=== PATIENT | male | born 1965 | race Caucasian/White ===

== ENCOUNTER 2019-08-22 11:38 | Inpatient (IN) | payer BC, OTHER ==
[2019-08-22] MEDS ORDERED: Ondansetron INJ* 2 MG/ML VIAL IV ONE (11:59)
[2019-08-22] MEDS ORDERED: NS 0.9% 1000 ML** 1,000 ML IV ONE ×3 (11:59→14:10)
[2019-08-22] MEDS ORDERED: Dexamethasone IV* 4 MG/ML 1 ML (4 MG) IV SLOW PU ONE (12:11)
--- NOTE | 2019-08-22 12:13 | ED ---
GI/ HPI - HPI Summary HPI Summary: Patient is a 53 y/o M w/ Hx of panhypopituitarism who presents to [facility] with complaints of N/V and mid-upper abdominal pain that radiates into his back. Sx onset last night, 08/21/19, patient denies previous episodes of similar Sx. Pain is characterized as severe. Patient notes that his abdomen is diffusely distended and that he feels diaphoretic as well. He states that he cannot find a comfortable position to stay in. Diarrhea is denied. Patient is on Dexamethasone 4 mg PO, which he has not taken today. PSHx of superficial abdominal surgeries and tonsillectomy reported. FMHx of hypothyroidism, HTN, HLD reported. Home medications and allergies are reviewed. - History of Current Complaint Chief Complaint: EDAbdPain Time Seen by Provider: 08/22/19 11:59 Stated Complaint: FLANK PAIN, Hx Obtained From: Patient Onset/Duration: Started Hours Ago, Still Present Timing: Lasting Hours Current Severity: Severe Pain Intensity: 10 Location of Pain: Radiates to: - back, Other - mid upper abdomen Pain Radiates to: Back Associated Signs and Symptoms: Positive: Back Pain, Nausea, Vomiting, Diaphoresis, Abdominal Pain, Other: - abdominal distention. Negative: Diarrhea - Allergy/Home Medications Allergies/Adverse Reactions: Allergies Allergy/AdvReac Type Severity Reaction Status Date / Time Penicillins Allergy Rash Verified 08/22/19 11:53 Home Medications: Home Medications Cyanocobalamin TAB* [Vitamin B12 TAB*] 500 mcg PO DAILY 08/22/19 [History Confirmed 08/22/19] Dexamethasone [Decadron] 4 mg PO DAILY 08/22/19 [History Confirmed 08/22/19] Levothyroxine TAB* [Synthroid TAB*] 125 mcg PO DAILY 08/22/19 [History Confirmed 08/22/19] Testosterone 2 pump TOPICAL DAILY 08/22/19 [History Confirmed 08/22/19] Vitamin B Complex CAP* [B Complex CAP*] 1 cap PO DAILY 08/22/19 [History Confirmed 08/22/19] PMH/Surg Hx/FS Hx/Imm Hx Endocrine/Hematology History: Reports: Other Endocrine/Hematological Disorders - panhypopituitarism Sensory History: Denies: Hx Legally Blind, Hx Deafness Opthamlomology History: Denies: Hx Legally Blind EENT History: Denies: Hx Deafness - Surgical History Surgery Procedure, Year, and Place: superficial abdominal surgeries and tonsillectomy Infectious Disease History: No Infectious Disease History: Denies: Traveled Outside the [place] in Last 30 Days - Family History Known Family History: Positive: Hypertension, Other - hypothyroid, dyslipidemia - Social History Alcohol Use: Occasionally Substance Use Type: Reports: None Smoking Status (MU): Never Smoked Tobacco Review of Systems Positive: Skin Diaphoresis Positive: Abdominal Pain, Vomiting, Nausea, Other - positive - abdominal distention . Negative: Diarrhea All Other Systems Reviewed And Are Negative: Yes Physical Exam - Summary Physical Exam Summary: Constitutional: Ill-appearing, Well-developed, Well-nourished, Alert. (-) Distressed Skin: Warm, Dry HENT: Normocephalic; Atraumatic Eyes: Conjunctiva normal Neck: Musculoskeletal ROM normal neck. (-) JVD, (-) Stridor, (-) Nuchal rigidity Cardio: Tachycardia, Heart sounds normal; Intact distal pulses; Radial pulses are 2+ and symmetric. (-) Murmur Pulmonary/Chest wall: Effort normal. (-) Respiratory distress, (-) Wheezes, (-) Rales Abd: Soft, Diffuse Tender, Mild Distention, (-) Guarding, (-) Rebound Musculoskeletal: (-) Edema Lymph: (-) Cervical adenopathy Neuro: Alert, Oriented x3 Psych: Mood and affect Normal Triage Information Reviewed: Yes Vital Signs On Initial Exam: Initial Vitals Temp Pulse Resp BP Pulse Ox 97.6 F 111 16 127/97 99 08/22/19 11:52 08/22/19 11:52 08/22/19 11:52 08/22/19 11:52 08/22/19 11:52 Vital Signs Reviewed: Yes Procedures - Sedation Patient Received Moderate/Deep Sedation with Procedure: No Diagnostics - Vital Signs Vital Signs Temp Pulse Resp BP Pulse Ox 08/22/19 11:52 97.6 F 111 16 127/97 99 - Laboratory Result Diagrams: 08/22/19 12:26 08/22/19 12:26 Lab Statement: Any lab studies that have been ordered have been reviewed, and results considered in the medical decision making process. - CT ct abd/pel CT Interpretation Completed By: Radiologist Summary of CT Findings: IMPRESSION: #. Acute pancreatitis with small volume of anterior pararenal space peripancreatic. nonloculated fluid and small volume of ascites. #. No CT abnormality of the gallbladder or visualized biliary dilatation. Consider RIGHT. upper quadrant ultrasound to further assess the gallbladder and common bile duct for. potential CT occult cholelithiasis and choledocholithiasis. #. Nonspecific hepatomegaly and hepatosteatosis which may be a risk factor for acute. pancreatitis. Correlate for etiology hepatosteatosis. #. Results discussed with Dr. Peterson 08/22/2019 2:05 PM EDT. THIS REPORT WAS REVIEWED BY ED PHYSICIAN. - Ultrasound gallbladder us Ultrasound Interpretation Completed By: Radiologist Summary of Ultrasound Findings: REPORT AND IMPRESSION: #. The visualized liver is echogenic consistent with hepatosteatosis. #. Normally distended gallbladder without wall thickening or cholelithiasis. Negative for. pericholecystic fluid. #. Short segment of the common bile duct visualized measuring up to 0.37 diameter within. normal limits. Hepatosteatosis limits acoustic window. No conspicuous stones within the. visualized common bile duct. #. The pancreas could not be visualized due to overlying bowel gas. This report was reviewed by ED physician. Re-Evaluation - Re-Evaluation First Eval Re-Evaluation Time: 13:29 Change: Unchanged Comment: 1329 Patient continues to be in pain, additional medications ordered. Second Eval Re-Evaluation Time: 13:57 Comment: Lipase level noted. Discussed workup with patient. GIGU Course/Dx - Course Course Of Treatment: 53 y/o male p/w n/v and diffuse abdominal pain. - ill appearing, tachycardic, dry MM, given 2 L IVF, zofran, morphine and 4 mg decadron IV for stress dose steroids. - labs w leukocytosis to 17, Hb 19 suspect hemoconcentration. Elevated AST/ALT. lipase 4500. - CT shows pancreatitis, no stones. US w/o stones. GI recommends ERCP. Given 3L IVF. Pain control w dilaudid. Patient in agreement w admission - Diagnoses Provider Diagnoses: Acute pancreatitis, Dehydration - Physician Notifications Discussed Care Of Patient With: Fransisco Guerrero Time Discussed With Above Provider: 14:11 Instructed by Provider To: Other - 1411 Dr. Guerrero in ED, will consult as needed, recommends gallbladder US, fluids, NPO, admission to hospitalist, GI consult. 1413 - Patient's case discussed with Dr. Clement, GI, recommends US , if negative, MRCP. She also recommends admission to hospitalist. 1417 - Patient's case was discussed with Dr. Bledsoe, Dr. Bledsoe accepts for admission. Discharge ED - Sign-Out/Discharge Documenting (check all that apply): Patient Departure - admit - Discharge Plan Condition: Stable Disposition: ADMITTED TO [facility] Referrals: No Primary Care Phys,NOPCP [Primary Care Provider] - - Billing Disposition and Condition Condition: STABLE Disposition: Admitted to [facility] - Attestation Statements Document Initiated by Meenu: Yes Documenting Scribe: PRITESH MARTÍNEZ Provider For Whom Meenu is Documenting (Include Credential): SEGRE PETERSON MD Scribe Attestation: PRITESH James, scribed for SERGE PETERSON MD on 08/22/19 at 1501. Scribe Documentation Reviewed: Yes Provider Attestation: The documentation as recorded by the PRITESH ku accurately reflects the service I personally performed and the decisions made by me, SERGE PETERSON MD Status of Scribe Document: Viewed
[2019-08-22 12:41] LABS: ABS Basophils 0.1 10^3/ul (0-0.2); ABS Lymphocytes 1.8 10^3/ul (1.0-4.8); ABS Monocytes 1.2 10^3/ul (0-0.8); ABS Neutrophils 14.7 10^3/ul (1.5-7.7); ABS Nucleated RBC 0.1 10^3/ul; Eosinophil % 0.2 %; Hematocrit 54 % (42-52); Mean Corpuscular HGB Conc 35 g/dL (31-36); Mean Corpuscular Hemoglobin 33 pg (27-31); Mean Corpuscular Volume 94 fL (80-94); Mean Platelet Volume 7.5 fL (7.4-10.4); Nucleated Red Blood Cells % 0.3; Platelet Count 191 10^3/uL (150-450); Red Blood Count 5.74 10^6 /uL (4.18-5.48); Red Cell Distribution Width 14 % (10-15); White Blood Count 17.8 10^3/uL (3.5-10.8)
[2019-08-22 12:59] LABS: Albumin 4.7 g/dL (3.2-5.2); Albumin/Globulin Ratio 1.4 (1-3); BUN/Creatinine Ratio 10.7 (8-20); Calcium 10.5 mg/dL (8.6-10.3); EGFR African American 55.6 (>60); EGFR Non-African American 45.9 (>60); Globulin 3.3 g/dL (2-4); Total Bilirubin 1.2 mg/dL (0.2-1.0)
[2019-08-22] MEDS ORDERED: Morphine 4 MG/ML VIAL (1 ml) 4 MG/ML VIAL IV ONE (13:04)
[2019-08-22] MEDS ORDERED: Morphine 10 MG/ML VIAL (1 ml) ONE (13:07)
[2019-08-22] MEDS ORDERED: Morphine 10 MG/ML VIAL (1 ml) IV ONE (13:09)
[2019-08-22] MEDS ORDERED: HYDROmorphone INJ* 0.5 MG/0.5 ML SYRINGE IV ONE ×2 (13:29→14:27)
[2019-08-22] MEDS ORDERED: Iodixanol* (CONTRAST) 320 MG/ML 100 ML SDV IV ONE (13:32)
[2019-08-22] MEDS ORDERED: NS 0.9% 1000 ML** 1,000 ML IV SCH (14:30)
[2019-08-22] MEDS ORDERED: HYDROmorphone INJ1* 1 MG/ML SYRINGE IV PRN (14:52)
[2019-08-22] MEDS: NS 0.9% 1000 ML** 1,000 ML IV SCH ×2 (15:26→22:46)
--- NOTE | 2019-08-22 15:31 | CONS ---
CC: Primary Care Doctor; [facility]; Endocrinology at [facility]; Dr. Chandu Jernigan SURGICAL CONSULTATION REPORT: DATE OF CONSULT: 08/22/19 LOCATION: The patient was seen in the emergency room. HISTORY OF PRESENT ILLNESS: I was contacted by Dr. Baez's partner Dr. 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 The patient describes onset of symptoms yesterday mostly in the anterior abdominal area, it was accom panied with severe nausea and vomiting and retching, nonbilious, nonbloody. The patient had temperat ure of 100, some chills, and pain continued through the night, radiating to the back by morning. It was accompanied with anorexia. Workup in the emergency room has included labs and a CT scan, which is consistent with pancreatitis w ith elevated lipase of 4500, small volume ascites, and fluid around the pancreas. The patient denies any previous similar symptoms. He is passing flatus. Denies any dysuria. Pain is alleviated with narcotics. It is somewhat relieved with rest; however, the patient states it is difficult to get com fortable. He describes being bloated earlier today and has shown some resolution of this. Again, he is passing flatus. He states his last bowel movement was within normal limits. PAST MEDICAL HISTORY: Pituitary lesion, status post excision. This did require some abdominal fasci al transplant and the patient does have a small infraumbilical incision that he identifies to me. Hy pertension. PAST SURGICAL HISTORY: As described. No other abdominal surgeries. FAMILY HISTORY: Gallbladder disease in the family where his mother had her removed at an older age. SOCIAL HISTORY: He lives with his partner who is the decision maker. Nonsmoker. He drinks about 2 g lasses of wine a day. 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 ALLERGIES: Reviewed, consists of PENICILLIN. REVIEW OF SYSTEMS: Fever as described. Chills as described. No shortness of breath. No chest pain . No cardiac history, although he has had an echocardiogram in the past when he was diagnosed with h ypertension and hypertensive crisis. This was likely secondary to pituitary adenoma. Echocardiogram is normal according to the patient. Abdominal pain as described. Dark colored urine. No pain on u rination. No bleeding or clotting disorders. History of elevated triglycerides according to the pat ient. He had recently had a draw at a doctor at an outside institution. These numbers are available to me today, show a cholesterol of 236 which now on review listed in our lab as normal. Triglycerid e of 461, which is deemed as high with reference range 200 to 499, close to very high, this was on . PHYSICAL EXAM: The patient is afebrile 97.6. He came in with a heart rate of 111, it was about 100 when I had gone to visit him. Blood pressure 136/87, respirations 20. He is on room air and satting in the high 90s. He is alert and oriented x3. He is in mild distr ess. Head, ears, eyes, and throat: Normocephalic, atraumatic. Sclerae are anicteric. Mucous membra lorena are dry with crusted lips. The patient is able to sit up with some difficulty. Mild CVA tendern ess on the left. No lesions otherwise on the back. Abdomen is soft, mildly distended, tender in the epigastrium with tympany on the right upper quadrant, but negative Maciel sign. Tender at the left s alex but only minimal discomfort in the lower quadrants without peritoneal signs. Well-healed surgica l incision without evidence of hernia. No groin hernias. Rectal exam not performed. Extremities wi th no pitting edema or skin changes. DIAGNOSTIC STUDIES/LAB DATA: Labs reviewed show white count of 17.8, H and H 19/54. Labs from 2 mon ths ago show H and H of 15/44. Chemistry panel reviewed shows elevated creatinine of 1.59, again he was 0.89 just recently. Elevated transaminases with a bilirubin of 1.2 and a calcium of 10.5, refere nce range is 8.6 to 10.3. Lipase of 4500. CT scan images reviewed consistent with acute pancreatitis with no evidence of necrosis, no abscess f ormation. IMPRESSION AND PLAN: Acute pancreatitis, unclear etiology. Differential diagnosis includes gallston e pancreatitis and I recommend ultrasound of the gallbladder. Alcohol is included in the etiology as well as triglyceridemia. The patient should be admitted, IV fluids, n.p.o. status, possible Roger ca theter placement for strict I's and O's and repeat labs in the morning paying attention to his calciu m level. The patient may warrant additional CAT scans to follow the course of this significant diseas e right now along with lipase draws, liberal hydration parenteral at this time is recommended. I do not recommend at this point antibiotics, I will leave this to the discretion of the hospitalist kenna doherty. We will follow closely. If the patient should have gallstones noted on ultrasound, then he shoul d undergo gallbladder removal possibly during this admission. We will discuss that going forward whe n more workup is done. I have discussed this with the ER service who will reach out to the [facility] and we will follow along with Dr. Baez. Again, strict n.p.o. is highly recommended for the sever ity of the patient's presentation. [id number]/[facility] #: [id number]
--- NOTE | 2019-08-22 15:39 | HP ---
HISTORY AND PHYSICAL: ADDENDUM: ASSESSMENT AND PLAN: Acute kidney injury, likely prerenal in the setting of acute inflammation and inability to tolerate p.o. Again, he needed some more aggressive IV fluid resuscitation and we will recheck his renal function tomorrow. [id number]/[facility] #: [id number] MTDD
--- NOTE | 2019-08-22 16:05 | HP ---
HISTORY AND PHYSICAL: DATE OF ADMISSION: 08/22/19 TIME OF ADMISSION: 3 p.m. CHIEF COMPLAINT: Abdominal pain. HISTORY OF PRESENT ILLNESS: This is a 53-year-old man with a history of panhypopituitarism, who presents to the emergency department with abdominal pain that started this morning. His symptoms initially started yesterday with some nausea, then later into the afternoon and evening he began vomiting, which he described as constant and he developed chills. He took his temperature and had a temperature of 100 degrees. Then, this morning, he developed epigastric abdominal pain that radiated to his back and his abdomen felt bloated and swollen. He could not get comfortable and even laid on the floor trying to reposition himself. He had no diarrhea, no fevers, and eventually this morning the pain got more severe and that is what prompted him to come to the emergency department. In the emergency department, he was found to have pancreatitis. He has never had pancreatitis before. He has never had gallbladder disease. He has no new recent medications, and he drinks 2 glasses of wine per night and has not been having any extra as of late. PAST MEDICAL HISTORY: 1. Hypertension. He is not currently taking any medications as it has been well controlled. 2. 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 3. Hyperlipidemia, which is diet controlled. PAST SURGICAL HISTORY: Tonsillectomy, wisdom teeth removal, and pituitary macroadenoma resection. HOME MEDICATIONS: 1. Vitamin B12 500 mcg daily. 2. Testosterone 20.25/1.25 two pumps topically daily. 3. Vitamin B complex 1 cap daily. 4. Synthroid 125 mcg daily. FAMILY HISTORY: Mom had gallstones. REVIEW OF SYSTEMS: As per the HPI. The remainder is negative. PHYSICAL EXAMINATION GENERAL: Alert, uncomfortable appearing man, in no distress. He changes position frequently. VITAL SIGNS: Temperature 97.6, heart rate 100, respiratory rate 20, pulse ox 93 % on room air, blood pressure 182/111. HEENT: Pupils equal, round, reactive to light. Oral mucosa is profoundly dry. NECK: No JVP or adenopathy. LUNGS: Clear bilaterally. CHEST: He is tachycardic with no murmurs. ABDOMEN: Tense and tender to light palpation in the right upper quadrant, mid epigastrium, and left upper quadrant without guarding. His liver is not palpable. I am unable to do a Maciel sign due to pain. No CVA tenderness. EXTREMITIES: No edema, rashes, or ulcers. Distal pulses are 2+ bilaterally. DIAGNOSTIC STUDIES/LAB DATA: White blood cells 17.8, hemoglobin 19.0, platelets 191. Sodium 139, potassium 4.0, chloride 98, bicarb 22, BUN 17, creatinine 1.59, glucose 98. AST 68, ALT 81. Lipase 4522. Abdomen and pelvis CT: Acute pancreatitis with small volume of anterior pararenal space, peripancreatic non-loculated fluid, and small volume of ascites. No CT abnormality of the gallbladder or visualized biliary dilatation. Consider right upper quadrant ultrasound to further assess the gallbladder and common bile duct for potential CT occult choledocholithiasis, cholelithiasis, and nonspecific hepatomegaly and hepatosteatosis which may be a risk factor for acute pancreatitis. Gallbladder ultrasound: The visualized liver is echogenic consistent with hepatosteatosis, normally distended gallbladder without wall thickening or cholelithiasis, negative for pericholecystic fluid, short segment of the common bile duct visualized measuring up to 0.37 in diameter within normal limits, hepatosteatosis limits acoustic window. No conspicuous stones within the visualized common bile duct. The pancreas could not be visualized due to overlying bowel gas. ASSESSMENT AND PLAN: This is a 53-year-old man with a history of hypertension, hyperlipidemia, and panhypopituitarism, who presents to the emergency department with several hours of abdominal pain and is found to have acute pancreatitis. 1. Acute pancreatitis. The etiology is unclear at this time. No stone has been visualized on either CT or ultrasound. This was discussed with Gastroenterology who recommended an MRCP. I have updated Horacio on this plan and he is in agreement. He is not on any medications known to be associated with pancreatitis. He does not have an autoimmune history, and I will check a lipid panel to rule out hypertriglyceridemia. I will manage his pain with Dilaudid, which was helpful in the emergency department. He needs more IV fluid resuscitation, and I will keep him n.p.o. as per his desire as even sips have caused him worsening pain. His diet can be advanced based on his comfort level. If his MRCP is positive, Dr. Mills is available tomorrow for an ERCP. 2. Hypopituitarism. He tells me that when he is ill he takes Decadron 4 mg daily. We will start this today. 3. Hypertension. He reports that this has been controlled off medications as an outpatient. I suspect his current hypertension is related to pain and we will attempt to treat it with improved pain control. 4. DVT prophylaxis: Lovenox subcutaneous. ADDENDUM TO HISTORY AND PHYSICAL: SOCIAL HISTORY: He is a nonsmoker. He drinks 2 glasses of wine per night. 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 ASSESSMENT AND PLAN: Acute kidney injury, likely prerenal in the setting of acute inflammation and inability to tolerate p.o. Again, he needed some more aggressive IV fluid resuscitation and we will recheck his renal function tomorrow. [id number]/[facility] #: [id number]/[facility] #: [id number]/[facility] #: [id number] SAHLEIGH
[2019-08-22] MEDS ORDERED: Ondansetron INJ* 2 MG/ML VIAL IV PRN (16:40)
[2019-08-22] MEDS: Dexamethasone TAB* 4 MG PO SCH (17:05)
--- NOTE | 2019-08-22 17:29 | PN ---
Hospitalist Progress Note Date of Service: 08/22/19 Trigs [id number]. I discussed with Dr. Irizarry; unlikely to cause pancreatitis at this level. Trend daily.
--- NOTE | 2019-08-22 18:13 | HP ---
ADDENDUM: HISTORY AND PHYSICAL: SOCIAL HISTORY: He is a nonsmoker. He drinks 2 glasses of wine per night. 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 [id number]/[facility] #: [id number] ASHLEIGH
[2019-08-22] MEDS: HYDROmorphone INJ1* 1 MG/ML SYRINGE IV PRN ×2 (19:58→22:41)
[2019-08-23] MEDS: HYDROmorphone INJ1* 1 MG/ML SYRINGE IV PRN ×7 (01:57→21:00)
[2019-08-23] MEDS ORDERED: Metoprolol Tartrate IV* 1 MG/ML 5 ML VIAL IV PRN (02:53)
[2019-08-23 04:32] LABS: ABS Lymphocytes 0.6 10^3/ul (1.0-4.8); ABS Monocytes 0.7 10^3/ul (0-0.8); ABS Neutrophils 11.9 10^3/ul (1.5-7.7); Eosinophil % 0.3 %; Hematocrit 54 % (42-52); Lymphocyte % 4.8 %; Mean Corpuscular HGB Conc 34 g/dL (31-36); Mean Corpuscular Hemoglobin 33 pg (27-31); Mean Corpuscular Volume 97 fL (80-94); Mean Platelet Volume 7.8 fL (7.4-10.4); Nucleated Red Blood Cells % 0.2; Platelet Count 129 10^3/uL (150-450); Red Blood Count 5.54 10^6 /uL (4.18-5.48); Red Cell Distribution Width 14 % (10-15); White Blood Count 13.3 10^3/uL (3.5-10.8)
[2019-08-23 05:12] LABS: ALT 56 U/L (7-52); Albumin 3.8 g/dL (3.2-5.2); Albumin/Globulin Ratio 1.7 (1-3); Alkaline Phosphatase 64 U/L (34-104); BUN/Creatinine Ratio 15.9 (8-20); Blood Urea Nitrogen 21 mg/dL (6-24); CO2 Carbon Dioxide 18 mmol/L (22-32); Calcium 7.3 mg/dL (8.6-10.3); Chloride 110 mmol/L (101-111); Cholesterol 250 mg/dL; EGFR African American 68.9 (>60); Globulin 2.3 g/dL (2-4); Glucose 132 mg/dL (70-100); LDL Cholesterol 146 mg/dL; Sodium 137 mmol/L (135-145); Total Protein 6.1 g/dL (6.4-8.9); Triglycerides 367 mg/dL
[2019-08-23 05:44] LABS: Anion Gap 9 mmol/L (2-11)
[2019-08-23] MEDS: Levothyroxine TAB* 125 MCG TAB PO SCH (05:52)
[2019-08-23] MEDS: NS 0.9% 1000 ML** 1,000 ML IV SCH ×4 (05:53→19:45)
[2019-08-23] MEDS: Enoxaparin(*) 40 MG/0.4 ML SYR SUBCUT SCH (08:45)
[2019-08-23] MEDS: Dexamethasone TAB* 4 MG PO SCH ×3 (08:47→09:57)
[2019-08-23 09:50] LABS: Potassium Redraw 6.1 mmol/L (3.5-5.0)
[2019-08-23 10:06] LABS: Magnesium 1.7 mg/dL (1.9-2.7)
[2019-08-23 10:28] LABS: BUN/Creatinine Ratio 17.2 (8-20); Calcium 7.3 mg/dL (8.6-10.3); EGFR Non-African American 48.8 (>60)
[2019-08-23 10:30] LABS: Potassium 6.1 mmol/L (3.5-5.0)
--- NOTE | 2019-08-23 11:05 | PN ---
Subjective Date of Service: 08/23/19 Interval History: Pt feels his abd pain is "a little better", but still severe enough to require IV pain med does Q3H, denies vomiting. Had a small BM last night Objective Active Medications: Dexamethasone (Decadron Tab*) 4 mg PO DAILY [facility] Last Admin: 08/23/19 09:57 Dose: Not Given Enoxaparin Sodium (Lovenox(*)) 40 mg SUBCUT Q24H [facility] Last Admin: 08/23/19 08:45 Dose: 40 mg Hydromorphone HCl (Dilaudid Inj1s*) 1.5 mg IV Q3H PRN PRN Reason: PAIN - SEVERE Last Admin: 08/23/19 08:42 Dose: 1.5 mg Sodium Chloride (Ns 0.9% 1000 Ml) 1,000 mls @ 150 mls/hr IV PER RATE [facility] Last Admin: 08/23/19 05:53 Dose: 150 mls/hr Levothyroxine Sodium (Synthroid Tab*) 125 mcg PO DAILY@0600 [facility] Last Admin: 08/23/19 05:52 Dose: 125 mcg Metoprolol Tartrate (Lopressor Iv*) 5 mg IV Q6H PRN PRN Reason: HR>120 Last Admin: 08/23/19 03:06 Dose: 5 mg Ondansetron HCl (Zofran Inj*) 4 mg IV Q4H PRN PRN Reason: NAUSEA Last Admin: 08/22/19 16:51 Dose: 4 mg Pantoprazole Sodium (Protonix Iv*) 40 mg IV DAILY [facility] Vital Signs - 8 hr 08/23/19 08/23/19 08/23/19 03:20 05:43 07:15 Temperature 97.6 F Pulse Rate 117 Respiratory 16 16 16 Rate Blood Pressure 119/79 (mmHg) O2 Sat by Pulse 92 Oximetry 08/23/19 08/23/19 08/23/19 08:00 08:42 09:57 Temperature Pulse Rate Respiratory 18 16 20 Rate Blood Pressure (mmHg) O2 Sat by Pulse Oximetry Oxygen Devices in Use Now: None Appearance: 53 yo M in nAD, aAOx3 Eyes: No Scleral Icterus, PERRLA Ears/Nose/Mouth/Throat: NL Teeth, Lips, Gums, Mucous Membranes Moist Neck: NL Appearance and Movements; NL JVP, Trachea Midline Respiratory: Symmetrical Chest Expansion and Respiratory Effort, Clear to Auscultation Cardiovascular: NL Sounds; No Murmurs; No JVD, RRR Abdominal: - - distended, tympanic to percusion, diffuse guarding noted, diffusely tender Lymphatic: No Cervical Adenopathy Extremities: No Edema Skin: No Rash or Ulcers Neurological: Alert and Oriented x 3, NL Muscle Strength and Tone Result Diagrams: 08/23/19 04:15 08/23/19 09:15 Assess/Plan/Problems-Billing Assessment: 53 yo M with h/o hypopituitarism s/p pituitary adenoma excision with N/V abd pain and acute pancreatitis - Patient Problems (1) Acute pancreatitis Comment: Still in significant abd pain and abd guarding, although pt feels a little better. will cont OK for sips of water start PPI IV for GI prohylaxis CT abd and MRCP shows edema of duodenum , normal gallbladder , decreased diameter of pancreatic duct proximally and acute pancreatitis cont IVF, dilaudid for pain control-singinficant need, but pain management adequate for pt for now GI and surgery consulted (2) Hyperkalemia Comment: likely due to hemolyzed specimen, will repeat (3) Tachycardia Comment: EKG shows sinus tachy-likely due to ongoing illness (4) Hypopituitarism Comment: cont stress dose steroids, levothyroxine (5) Acute renal failure Comment: due to pancreatitis, cont IVf (6) DVT prophylaxis Comment: lovenox Status and Disposition: inpatient
[2019-08-23] MEDS ORDERED: Magnesium Sulfate 2 GM IV* 2 GM/50 ML BAG IVPB ONE (11:09)
[2019-08-23] MEDS: Pantoprazole IV* 40 MG IV SCH (11:32)
--- NOTE | 2019-08-23 12:25 | PN ---
Progress Note - Progress Note Date of Service: 08/23/19 Note: Surgery Progress Note S: Patient still complains of significant abdominal pain though slightly better. He is able to ambulate to the bathroom slowly. No emesis. His I&Os have not been recorded. O: Vital Signs - 24 hr 08/22/19 08/22/19 08/22/19 13:09 13:19 13:34 Temperature Pulse Rate 82 Respiratory 20 20 Rate Blood Pressure 136/87 (mmHg) O2 Sat by Pulse 95 Oximetry 08/22/19 08/22/19 08/22/19 14:00 14:19 14:23 Temperature Pulse Rate 101 102 Respiratory Rate Blood Pressure 184/122 180/110 (mmHg) O2 Sat by Pulse 92 92 Oximetry 08/22/19 08/22/19 08/22/19 14:49 15:00 15:02 Temperature Pulse Rate 100 101 Respiratory 20 Rate Blood Pressure 182/111 (mmHg) O2 Sat by Pulse 93 95 Oximetry 08/22/19 08/22/19 08/22/19 15:19 16:20 16:21 Temperature 97.6 F Pulse Rate 102 101 Respiratory 20 20 Rate Blood Pressure 179/126 182/111 (mmHg) O2 Sat by Pulse 91 95 Oximetry 08/22/19 08/22/19 08/22/19 16:35 16:51 18:07 Temperature 97.5 F Pulse Rate 105 Respiratory 20 20 18 Rate Blood Pressure 179/119 (mmHg) O2 Sat by Pulse 96 Oximetry 08/22/19 08/22/19 08/22/19 19:30 19:50 19:58 Temperature 97.3 F Pulse Rate 124 Respiratory 18 18 20 Rate Blood Pressure 180/98 (mmHg) O2 Sat by Pulse 96 Oximetry 08/22/19 08/22/19 08/22/19 20:38 20:54 22:41 Temperature Pulse Rate 106 Respiratory 18 18 Rate Blood Pressure 128/72 (mmHg) O2 Sat by Pulse Oximetry 08/22/19 08/22/19 08/23/19 23:31 23:49 00:30 Temperature 98.3 F Pulse Rate 126 126 Respiratory 16 18 Rate Blood Pressure 153/112 162/106 (mmHg) O2 Sat by Pulse 94 Oximetry 08/23/19 08/23/19 08/23/19 01:57 02:55 03:20 Temperature 98.1 F Pulse Rate 128 Respiratory 20 16 16 Rate Blood Pressure 125/84 (mmHg) O2 Sat by Pulse 91 Oximetry 08/23/19 08/23/19 08/23/19 05:43 07:15 08:00 Temperature 97.6 F Pulse Rate 117 Respiratory 16 16 18 Rate Blood Pressure 119/79 (mmHg) O2 Sat by Pulse 92 Oximetry 08/23/19 08/23/19 08/23/19 08:42 09:57 11:36 Temperature Pulse Rate Respiratory 16 20 18 Rate Blood Pressure (mmHg) O2 Sat by Pulse Oximetry Laboratory Results - last 24 hr 08/22/19 08/22/19 08/23/19 12:26 12:26 04:15 WBC 17.8 H 13.3 H RBC 5.74 H 5.54 H Hgb 19.0 H 18.0 Hct 54 H 54 H MCV 94 97 H MCH 33 H 33 H MCHC 35 34 RDW 14 14 Plt Count 191 129 L MPV 7.5 7.8 Neut % (Auto) 82.7 89.4 Lymph % (Auto) 10.0 4.8 [place] % (Auto) 6.5 5.3 Eos % (Auto) 0.2 0.3 Baso % (Auto) 0.6 0.2 Absolute Neuts (auto) 14.7 H 11.9 H Absolute Lymphs (auto) 1.8 0.6 L Absolute Monos (auto) 1.2 H 0.7 Absolute Eos (auto) 0.0 0.0 Absolute Basos (auto) 0.1 0.0 Absolute Nucleated RBC 0.1 0.0 Nucleated RBC % 0.3 0.2 Sodium 139 Potassium 4.0 Chloride 98 L Carbon Dioxide 22 Anion Gap 19 H BUN 17 Creatinine 1.59 H Est GFR ( Amer) 55.6 Est GFR (Non-Af Amer) 45.9 BUN/Creatinine Ratio 10.7 Glucose 98 Calcium 10.5 H Magnesium Total Bilirubin 1.20 H AST 68 H ALT 81 H Alkaline Phosphatase 102 Total Protein 8.0 Albumin 4.7 Globulin 3.3 Albumin/Globulin Ratio 1.4 Triglycerides 665 Cholesterol LDL Cholesterol HDL Cholesterol Lipase 4522 H 08/23/19 08/23/19 08/23/19 04:15 09:15 09:15 WBC RBC Hgb Hct MCV MCH MCHC RDW Plt Count MPV Neut % (Auto) Lymph % (Auto) [place] % (Auto) Eos % (Auto) Baso % (Auto) Absolute Neuts (auto) Absolute Lymphs (auto) Absolute Monos (auto) Absolute Eos (auto) Absolute Basos (auto) Absolute Nucleated RBC Nucleated RBC % Sodium 137 135 Potassium TNP 6.1 H* 6.1 H* D Chloride 110 107 Carbon Dioxide 18 L 18 L Anion Gap 9 10 BUN 21 26 H Creatinine 1.32 H 1.51 H Est GFR ( Amer) 68.9 59.0 Est GFR (Non-Af Amer) 57.0 48.8 BUN/Creatinine Ratio 15.9 17.2 Glucose 132 H 147 H Calcium 7.3 L 7.3 L Magnesium Cancelled 1.7 L Total Bilirubin 1.20 H AST TNP 90 H ALT 56 H Alkaline Phosphatase 64 Total Protein 6.1 L Albumin 3.8 Globulin 2.3 Albumin/Globulin Ratio 1.7 Triglycerides 367 Cholesterol 250 LDL Cholesterol 146 HDL Cholesterol 31.0 Lipase 2060 H Intake & Output 08/22/19 08/23/19 08/23/19 22:59 06:59 14:59 Intake Total 2949 1001 Output Total 0 Balance 2949 1001 Weight 196 lb 8 oz Intake: IV Fluids 2949 1001 NS (0.9%) 949 1001 Oral 0 0 Output: Urine 0 Physical exam: Abdomen- distended, tender diffusely, somewhat tense A/P: 53 M with severe acute pancreatitis. - I reviewed all of patient's imaging and discussed it with him. He does not appear to have any evidence of gallstones, cholecystitis or biliary dilitation that would suggest that the source of the pancreatitis is from gallstones. He has infiltration of his mesentery and retroperitoneum with fluid and peripancreatic inflammation/fluid. - His overall clinical condition appears to be slightly improved today. He is still tachycardic, but his calcium and Cr have improved and his WBC and lipase levels are downtrending. His I&Os have not been recorded and I spoke with his nurse regarding the importance of strict documentation in order to guide his fluid resuscitation, given the severity of his pancreatitis. - Will increase IVF to 200cc/hr, per patient his UOP has been marginal and darkish today. - Continue NPO I discussed care with Dr. Latham and debra's nurse
--- NOTE | 2019-08-23 14:40 | CONS ---
CONSULTATION REPORT: DATE OF CONSULT: 08/23/19 INDICATION: Pancreatitis. 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 He states that he had developed abdominal pain that was mild in nature that progressively got worse over many hours. It became so severe that he really could not find any comfortable position, also developed some bloating and distention. Eventually when the pain started radiating through to his back, he presented to the emergency room where labs and CT indicated pancreatitis. He was admitted to the hospital, was seen by the surgical services, has been n.p.o. receiving IV fluids and pain control. Currently, he states that he is feeling better at this point. He has not anywhere near being normal but definitely he states better today than yesterday and better than the day before. As far as his pancreatitis goes, he has never been diagnosed with pancreatitis in the past. There is no family history of pancreatitis. He does drink 2 glasses of wine every night. This has not increased at all recently. Denies any history of gallstones. Denies any new medications. He will take prednisone occasionally, stress dose prednisone, due to his panhypopituitarism; however he has not taken any in approximately 4 months. He rarely takes NSAIDs, but he did take some after the pain began. He denies any other new medications. Again, no family history of pancreatitis. Denies any injury or trauma. No scorpion bites. He does have a history of hypertriglyceridemia. He had it checked a few months ago , it was 614. He did have a temperature of 100.0, but not above. No other infectious symptoms. PAST MEDICAL HISTORY: Significant for panhypopituitarism, hypertriglyceridemia , untreated hypertension. PAST SURGICAL HISTORY: Included tonsillectomy, dental surgery, and a pituitary macroadenoma resection. MEDICATIONS AT HOME: Include: 1. Synthroid. 2. Testosterone. 3. Vitamin B12 and B complex. FAMILY HISTORY: Gallstones. Social: 2 glasses of wine per night, no tobacco, no IV drugs REVIEW OF SYSTEMS: Twelve systems were reviewed, other than that mentioned in the HPI were unremarkable. PHYSICAL EXAM: Temperature is 97.3, blood pressure is 121/84, pulse is 123, respiratory rate of 16, O2 sat is 91% on room air. General: Well-appearing male, in no apparent distress. Alert, oriented, pleasant, fluent. HEENT: Mucous membranes are moist without lesions, ulcers, or exudate. Sclerae anicteric. Conjunctivae are not pale. Heart: Regular rate and rhythm, tachycardic. No murmur. Lungs: Clear to auscultation bilaterally. No wheezes , rales, or rhonchi. Abdomen is softly distended. Obese. Positive bowel sounds. Diffusely tender. No rebound. No guarding. No masses are felt. Good bowel sounds, however. Skin is warm and dry. Psych: normal affect, good mood, LABORATORY DATA: Of note, white count is 13.3, hemoglobin is 18, platelet count of 129. BUN is 26, creatinine is 1.51. Glucose is 147. Calcium is down to 7.3, was at 10.5. Bilirubin is 1.2. AST went from 68 to 90. ALT went from 81 to 56. Triglycerides went from 665 down to 367. Lipase went from 4522 to 2060. He also has an MRCP which does not reveal any cholelithiasis, no anatomic changes. A CT abdomen and pelvis shows acute pancreatitis and hepatic steatosis. 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 At this point, leading etiology would be idiopathic; however, also could be hypertriglyceridemia. His level is in the mid 600 range, usually we see it higher, but it could be also his calcium was slightly elevated, it does not appear to be biliary in nature. No malignancy. I do not think alcohol is the culprit here. Medications I doubt, I do not think that the prednisone 4 months ago would contribute to this, I do not hear any other medications. No family history of pancreatitis. No real infectious symptoms, vasculitis, or anatomy symptoms, and I would like to check an IgG4 at this point. He is getting fluids at an appropriate rate. Right now, we will continue with the fluids, pain control, and n.p.o. status. We will continue to follow along. [id number]/CPS #: [id number] [facility]
[2019-08-23] MEDS ORDERED: Dexamethasone TAB* 4 MG PO SCH (15:00)
[2019-08-24] MEDS ORDERED: NS 0.9% 1000 ML** 1,000 ML IV SCH ×2 (01:31→14:30)
[2019-08-24 06:03] LABS: Hematocrit 42 % (42-52); Hemoglobin 14.3 g/dL (14.0-18.0); Mean Corpuscular HGB Conc 34 g/dL (31-36); Mean Corpuscular Hemoglobin 33 pg (27-31); Mean Corpuscular Volume 99 fL (80-94); Mean Platelet Volume 8.4 fL (7.4-10.4); Platelet Count 80 10^3/uL (150-450); Red Cell Distribution Width 15 % (10-15); White Blood Count 8.4 10^3/uL (3.5-10.8)
[2019-08-24 06:16] LABS: Albumin 3.3 g/dL (3.2-5.2); Albumin/Globulin Ratio 1.3 (1-3); BUN/Creatinine Ratio 17.7 (8-20); EGFR African American 63.9 (>60); EGFR Non-African American 52.8 (>60); Globulin 2.5 g/dL (2-4); Magnesium 2.2 mg/dL (1.9-2.7); Total Bilirubin 1.4 mg/dL (0.2-1.0); Total Protein 5.8 g/dL (6.4-8.9)
[2019-08-24] MEDS: Levothyroxine TAB* 125 MCG TAB PO SCH (06:20)
[2019-08-24 06:26] LABS: Calcium 6.4 mg/dL (8.6-10.3)
[2019-08-24 06:31] LABS: Potassium 4.5 mmol/L (3.5-5.0)
--- NOTE | 2019-08-24 06:57 | PN ---
Progress Note - Progress Note Date of Service: 08/24/19 Note: Patient seen overnight for shortness of breath and hypoxia. Patient saturation in low 90's in room air and complaining of shortness of breath. Denies cough, fever, chest pain. Has diffuse abdominal pain but is getting better than yesterday. Patient declining pain medication. Lung exam- Shallow breathing, diminished. Chest xray done which showed Bilateral Pleural Effusion(more on left side, although official read pending). Patient started on oxygen and stopped IVF.
[2019-08-24] MEDS ORDERED: Calcium Gluconate INJ* 2 GM in NS 0.9% 100 ML* 100 ML IV ONE ×2 (08:45→16:34)
[2019-08-24] MEDS: Enoxaparin(*) 40 MG/0.4 ML SYR SUBCUT SCH (09:49)
[2019-08-24] MEDS: Pantoprazole IV* 40 MG IV SCH (09:50)
[2019-08-24] MEDS: Dexamethasone TAB* 4 MG PO SCH (09:50)
[2019-08-24] MEDS ORDERED: Furosemide IV* 10 MG/ML 2 ML VIAL (20 MG) IV ONE (10:01)
--- NOTE | 2019-08-24 10:04 | PN ---
Subjective Date of Service: 08/24/19 Interval History: Farheen had a temp 100.6 this AM, and developed SOB last night-IVF were stopped. Today abd is less painful, but he is definitely SOB Objective Active Medications: Dexamethasone (Decadron Tab*) 4 mg PO DAILY [facility] Last Admin: 08/24/19 09:50 Dose: 4 mg Enoxaparin Sodium (Lovenox(*)) 40 mg SUBCUT Q24H [facility] Last Admin: 08/24/19 09:49 Dose: 40 mg Furosemide (Lasix Iv*) 20 mg IV ONCE ONE Stop: 08/24/19 10:02 Hydromorphone HCl (Dilaudid Inj1s*) 1.5 mg IV Q3H PRN PRN Reason: PAIN - SEVERE Last Admin: 08/23/19 21:00 Dose: 1.5 mg Calcium Gluconate 2 gm/ Sodium (Chloride) 120 mls @ 60 mls/hr IV ONCE ONE Stop: 08/24/19 10:44 Last Admin: 08/24/19 09:50 Dose: 60 mls/hr Metronidazole/Sodium Chloride (Flagyl 500 Mg Ivpb*) 500 mg in 100 mls @ 100 mls /hr IVPB Q8H [facility] Ceftriaxone Sodium 1 gm/ (Sodium Chloride) 50 mls @ 100 mls/hr IVPB Q24H [facility] Levothyroxine Sodium (Synthroid Tab*) 125 mcg PO DAILY@0600 [facility] Last Admin: 08/24/19 06:20 Dose: 125 mcg Metoprolol Tartrate (Lopressor Iv*) 5 mg IV Q6H PRN PRN Reason: HR>120 Last Admin: 08/23/19 03:06 Dose: 5 mg Ondansetron HCl (Zofran Inj*) 4 mg IV Q4H PRN PRN Reason: NAUSEA Last Admin: 08/22/19 16:51 Dose: 4 mg Pantoprazole Sodium (Protonix Iv*) 40 mg IV DAILY [facility] Last Admin: 08/24/19 09:50 Dose: 40 mg Vital Signs - 8 hr 08/24/19 08/24/19 02:59 03:15 Temperature 99.3 F Pulse Rate 104 Respiratory 18 Rate Blood Pressure 138/93 (mmHg) O2 Sat by Pulse 89 93 Oximetry Oxygen Devices in Use Now: None Appearance: 53 yo m in nAD, AAox3, tachypenic Eyes: No Scleral Icterus, PERRLA Ears/Nose/Mouth/Throat: NL Teeth, Lips, Gums, Mucous Membranes Moist Neck: NL Appearance and Movements; NL JVP, Trachea Midline Respiratory: Symmetrical Chest Expansion and Respiratory Effort, - - decreased breath sounds at b/l bases Cardiovascular: NL Sounds; No Murmurs; No JVD, RRR Abdominal: - - soft, diffusely tender, BS +, + voluntary guarding Lymphatic: No Cervical Adenopathy Extremities: No Edema Skin: No Rash or Ulcers, - - skin flushed, dry Neurological: Alert and Oriented x 3, NL Muscle Strength and Tone Result Diagrams: 08/24/19 05:38 08/24/19 05:38 Assess/Plan/Problems-Billing Assessment: 53 yo M with h/o hypopituitarism s/p pituitary adenoma excision with N/V abd pain and acute pancreatitis - Patient Problems (1) Acute pancreatitis Comment: Still in significant abd pain , although pt feels a little better. cont OK for sips of water cont PPI IV for GI prohylaxis CT abd and MRCP shows edema of duodenum , normal gallbladder , decreased diameter of pancreatic duct proximally and acute pancreatitis cont IVF, dilaudid for pain control-singinficant need, but pain management adequate for pt for now GI and surgery consulted,. As d/w GI due to temp of 100.6 will start broad spectrum antibiotics Ceftriaxone/flagyl (2) Hyperkalemia Comment: likely due to hemolyzed specimen-resolved (3) Tachycardia Comment: EKG shows sinus tachy-likely due to ongoing illness (4) Hypopituitarism Comment: cont stress dose steroids, levothyroxine (5) Acute renal failure Comment: due to pancreatitis, due to pleural effusions and significant dyspnea-will cont on holding IVF, tx with a dose of Lasix 20 mg once, repeat BMP today 13:00 and prob restart gentle IVF at that point (6) Thrombocytopenia Comment: due to SIRS secondary to pancreatitis. will hold Lovenox for now and cont to monitor Plt (7) Hypocalcemia Comment: replacing IV (8) DVT prophylaxis Comment: lovenox held due to low Plts Status and Disposition: inpatient
--- NOTE | 2019-08-24 11:39 | PN ---
Progress Note - Progress Note Date of Service: 08/24/19 Note: GASTROENTEROLOGY PROGRESS NOTE IE/S: - Abdominal pain mildly improved. Still remains very uncomfortable. - Asymptomatic hypoxia developed overnight. Now quite dyspneic. Mild cough. Sore throat. 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 O: Tm 100.6, HR 100's, BP 139/93, RR 22, SpO2 80% (although note made that fingers were cold) and 89% later w/ 93% on 2L NC. Gen: Ill-appearing gentleman. Dyspneic with short sentences. HEENT: On nasal cannula. Pulm: Short of breath with conversation. Abd: Mildly distended and firm (not rigid). Very tender diffusely to minimal palpation. No clear peritoneal findings. Skin: Flushed. No jaundice. Labs WBC 17.8 >> 8.4 Hgb 19 >> 14.3 Cr 1.59 >> 1.41 BUN 17 >> 25 AST 68 >> 101 ALT 81 >> 38 Alk phos 102 >> 48 Bilirubin 1.2 >> 1.4. Calcium 10.5 >> 6.4 Lipase 4522 >> 862 Imaging CXR with b/l pleural effusions MRCP: Acute pancreatitis. Distal segment of CBD involving intrapanc portion not well visualized due to small size or extrinsic compression. No pancreatic ductal dilation. No biliary dilation. No cholelithiasis or choledocholithiasis. Mild mural edema in 1st, 2nd, 3rd segments of duodenum. Small volume ascites. Hepatomegaly. US: Area of visualized CBD not dilated. Hepatic steatosis. CT abd/pelvis: Acute pancreatitis with peripancreatic fluid and small volume ascites. Non-specific hepatomegaly and hepatic steatosis. 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 Since admission, Dr Baez has developed hypoxia and increasing dyspnea. Likely related to IV fluids given in first 24 hours of admission (5 liters yesterday, 3.6 liters today) as well as abdominal splinting and basilar atelectasis. His IV fluid has been temporarily stopped. While the drop in Hct is supportive of adequate fluid replacement, I am concerned that his Cr remains above baseline and BUN is trending up. This either argues that he needs further fluid replacement or is developing ATN. Unclear etiology of pancreatitis at this point. Hypertriglyceridemia considered , although typically TG level is >1000. Hypercalcemia unlikely. Viral etiology considered. There is not much data available for GI manifestations of COVID-19 at this point, although there are anecdotal reports of COVID-19 positive patients presenting with pancreatitis. Given his significant respiratory complaints today as well as other symptoms (sore throat and mild cough), I think it is important to rule-out this infection. No gallstone, choledocholithiasis or alcohol history noted. - Continue to monitor CBC, LFTs, lipase daily. Please request fractionated bilirubin with next set of labs. - Recommend monitoring of electrolytes more frequently in first 72 hours. - Agree with calcium correction given low ionized calcium. - Recommend treatment of glucose if >200 as this can increase risk of secondary pancreatic infections. - Primary team has ordered small dose of IV lasix this morning given significant dyspnea and new hypoxia. Would monitor patient clinically, but I would recommend restarting LR @ 150-200 cc/hr, particularly given rising BUN. Fluid replacement can mitigate SIRS response. - Await IgG4 - Recommend ruling patient out for COVID-19. - Please records all I/O with strict recording of urine output. Goal urine output 0.5-1 cc/kg/hour. Only 400 cc charted today, which is too low. Possible that this is not special service representative of true uop as patient has noticed he is urinating more. Reassess UOP every 8 hours. - If urine output remains low OR BUN/Cr continue to rise despite fluids, then the possibilities include that patient needs further fluid resuscitation at increased rate or ATN has developed. Would increase fluid rate if acceptable from pulmonary standpoint AND rule-out ATN with urine microscopy. - Continue NPO status - Agree with empiric PPI as there is some duodenal edema noted on CT. Likely reactive 2/2 pancreatitis, although PUD is rare cause of pancreatitis. - Consider repeat CT abdomen (+/- chest) if acute clinical change or decompensation. Complete extent of pancreatitis may only be clear several days after initial presentation. - Antibiotics are not typically recommended for pancreatitis in absence of infection. Primary team is considering antibiotics given increasing pulmonary issues and fever today. There has not been a clear infection identified at this point, but I have no strong objection to empiric antibiotics for now. - Low threshold to transfer to ICU if hypoxia remains an ongoing issue or BUN/ Cr continue to rise. Please notify GI if any acute clinical change. GI will continue to follow. Jaylene Clement MD Gastroenterology
[2019-08-24 12:07] LABS: Influenza A Molecular Negative (Negative); Influenza B Molecular Negative (Negative)
[2019-08-24 12:36] LABS: BUN/Creatinine Ratio 16.9 (8-20); Blood Urea Nitrogen 22 mg/dL (6-24); CO2 Carbon Dioxide 25 mmol/L (22-32); Calcium 6.7 mg/dL (8.6-10.3); Chloride 103 mmol/L (101-111); EGFR African American 70.1 (>60); Glucose 168 mg/dL (70-100); Sodium 136 mmol/L (135-145)
[2019-08-24 12:39] LABS: Anion Gap 8 mmol/L (2-11)
[2019-08-24] MEDS: cefTRIAXone(*) 1 GM in NS 0.9% 50 ML* 50 ML IVPB SCH (13:19)
[2019-08-24] MEDS: metroNIDAZOLE IV 500 MG/100ML* 500 MG/100 ML BAG IVPB SCH ×2 (15:03→21:21)
[2019-08-24] MEDS: NS 0.9% 1000 ML** 1,000 ML IV SCH (15:14)
[2019-08-24] MEDS ORDERED: Lorazepam PYXIS KEY PRN (15:42)
[2019-08-24] MEDS: LORazepam INJ* 2 MG/ML 1 ML VIAL IV PUSH PRN ×2 (16:01→21:21)
--- NOTE | 2019-08-24 19:07 | PN ---
Progress Note - Progress Note Date of Service: 08/24/19 SOAP: Subjective: Patient seen and examined. His chart was reviewed. IV fluids held and then restarted at 75 mL an hour. Some tachypnea and now on intermittent O2 nasal cannula. Placed on ceftriaxone. Sips of clears. Urinary frequency. 1000 mL out within last shift. Patient had residuals checked and noted to have 200 mL and bladder on ultrasound. Overall, patient feels much better today. He feels bloated. Almost no appetite. No flatus. No bowel movement. I adhered to strict Covid 19 precautions since patient is being tested. Objective: Intake & Output 08/24/19 08/24/19 08/24/19 06:59 14:59 22:59 Intake Total 941 427 Output Total 0 1000 Balance 941 -573 Alert and oriented 3, no significant distress and improved compared to yesterday HEENT: Sclerae anicteric, mucous membranes dry Abdomen: Soft, distended, minimally tender. No skin changes. Labs noted. Hypocalcemia being corrected. Assessment: Acute pancreatitis, unknown etiology, favoring triglyceridemia Seemingly adequate resuscitation for the most part concerned about Lasix dosing. Plan: Strict I's and O's, Roger placement if needed Ice chips only Low threshold for transfer to ICU Agree with GI that repeat CT scan for follow-up with patient does not continue to show significant improvement Labs in a.m. Will continue to follow
[2019-08-25] MEDS: NS 0.9% 1000 ML** 1,000 ML IV SCH ×2 (04:56→18:01)
[2019-08-25] MEDS: Levothyroxine TAB* 125 MCG TAB PO SCH (04:59)
[2019-08-25] MEDS: LORazepam INJ* 2 MG/ML 1 ML VIAL IV PUSH PRN ×2 (04:59→11:38)
[2019-08-25] MEDS: metroNIDAZOLE IV 500 MG/100ML* 500 MG/100 ML BAG IVPB SCH ×2 (05:04→11:46)
[2019-08-25 06:13] LABS: ABS Lymphocytes 0.6 10^3/ul (1.0-4.8); ABS Monocytes 0.6 10^3/ul (0-0.8); ABS Neutrophils 5.2 10^3/ul (1.5-7.7); Hematocrit 35 % (42-52); Hemoglobin 12.3 g/dL (14.0-18.0); Lymphocyte % 8.8 %; Mean Corpuscular HGB Conc 35 g/dL (31-36); Mean Corpuscular Hemoglobin 33 pg (27-31); Mean Corpuscular Volume 95 fL (80-94); Mean Platelet Volume 7.4 fL (7.4-10.4); Nucleated Red Blood Cells % 0.2; Platelet Count 92 10^3/uL (150-450); Red Cell Distribution Width 14 % (10-15); White Blood Count 6.3 10^3/uL (3.5-10.8)
[2019-08-25 06:30] LABS: Albumin/Globulin Ratio 1.3 (1-3); BUN/Creatinine Ratio 16.2 (8-20); EGFR African American 96.1 (>60); EGFR Non-African American 79.4 (>60); Globulin 2.4 g/dL (2-4); Total Bilirubin 1.1 mg/dL (0.2-1.0); Total Protein 5.4 g/dL (6.4-8.9)
[2019-08-25 06:34] LABS: Calcium 6.2 mg/dL (8.6-10.3)
[2019-08-25 06:49] LABS: Potassium 3.8 mmol/L (3.5-5.0)
[2019-08-25] MEDS: Pantoprazole IV* 40 MG IV SCH (09:02)
[2019-08-25] MEDS: Enoxaparin(*) 40 MG/0.4 ML SYR SUBCUT SCH (09:02)
[2019-08-25] MEDS: Dexamethasone TAB* 4 MG PO SCH (09:02)
[2019-08-25] MEDS ORDERED: Calcium Gluconate INJ* 2 GM in NS 0.9% 100 ML* 100 ML IV ONE (09:30)
[2019-08-25 09:33] LABS: Magnesium 2.4 mg/dL (1.9-2.7)
[2019-08-25] MEDS: cefTRIAXone(*) 1 GM in NS 0.9% 50 ML* 50 ML IVPB SCH (11:44)
--- NOTE | 2019-08-25 16:08 | PN ---
Subjective Date of Service: 08/25/19 Interval History: 53 year old man with vomiting and abdominal pain due to acute pancreatitis, no cause found to date. Pain resolved, taking sips of clears. + flatus no BM. No fever or rash. Has not had pancreatitis in the past. Objective Active Medications: Dexamethasone (Decadron Tab*) 4 mg PO DAILY [facility] Last Admin: 08/25/19 09:02 Dose: 4 mg Enoxaparin Sodium (Lovenox(*)) 40 mg SUBCUT Q24H [facility] Last Admin: 08/25/19 09:02 Dose: 40 mg Metronidazole/Sodium Chloride (Flagyl 500 Mg Ivpb*) 500 mg in 100 mls @ 100 mls /hr IVPB Q8H [facility] Last Admin: 08/25/19 11:46 Dose: 100 mls/hr Ceftriaxone Sodium 1 gm/ (Sodium Chloride) 50 mls @ 100 mls/hr IVPB Q24H [facility] Last Admin: 08/25/19 11:44 Dose: 100 mls/hr Sodium Chloride (Ns 0.9% 1000 Ml) 1,000 mls @ 75 mls/hr IV PER RATE [facility] Last Admin: 08/25/19 04:56 Dose: 75 mls/hr Levothyroxine Sodium (Synthroid Tab*) 125 mcg PO DAILY@0600 [facility] Last Admin: 08/25/19 04:59 Dose: 125 mcg Lorazepam (Ativan Inj*) 0.5 mg IV PUSH Q4H PRN PRN Reason: ANXIETY Last Admin: 08/25/19 11:38 Dose: 0.5 mg Metoprolol Tartrate (Lopressor Iv*) 5 mg IV Q6H PRN PRN Reason: HR>120 Last Admin: 08/23/19 03:06 Dose: 5 mg Miscellaneous (Ativan Pyxis Grey) 1 ea N/A .ATIVAN IV GREY PRN PRN Reason: PYXIS GREY Ondansetron HCl (Zofran Inj*) 4 mg IV Q4H PRN PRN Reason: NAUSEA Last Admin: 08/22/19 16:51 Dose: 4 mg Pantoprazole Sodium (Protonix Iv*) 40 mg IV DAILY [facility] Last Admin: 08/25/19 09:02 Dose: 40 mg Vital Signs - 8 hr 08/25/19 08/25/19 08/25/19 11:15 11:38 13:35 Temperature 36.4 C Pulse Rate 84 Respiratory 16 18 18 Rate Blood Pressure 133/82 (mmHg) O2 Sat by Pulse 93 Oximetry 08/25/19 15:15 Temperature 36.8 C Pulse Rate 94 Respiratory 19 Rate Blood Pressure 157/99 (mmHg) O2 Sat by Pulse 94 Oximetry Oxygen Devices in Use Now: None, Nasal Cannula Eyes: No Scleral Icterus Ears/Nose/Mouth/Throat: Clear Oropharnyx Neck: NL Appearance and Movements; NL JVP Respiratory: Symmetrical Chest Expansion and Respiratory Effort, Clear to Auscultation Cardiovascular: NL Sounds; No Murmurs; No JVD Abdominal: NL Sounds; No Tenderness; No Distention Lymphatic: No Cervical Adenopathy Extremities: No Edema Skin: No Rash or Ulcers Neurological: Alert and Oriented x 3 Result Diagrams: 08/25/19 05:58 08/25/19 05:58 Assess/Plan/Problems-Billing Assessment: 53 yo M with h/o hypopituitarism s/p pituitary adenoma excision with N/V abd pain and acute pancreatitis - Patient Problems (1) Acute pancreatitis Current Visit: Yes Status: Acute Code(s): K85.90 - ACUTE PANCREATITIS WITHOUT NECROSIS OR INFECTION, UNSP SNOMED Code(s): 893389689 Comment: Pain much improved. Idiopathic vs TG related. cont PPI IV for GI prophylaxis, sips of fluids. CT abd and MRCP shows edema of duodenum , normal gallbladder , decreased diameter of pancreatic duct proximally and acute pancreatitis cont IVF, dilaudid for pain control-singinficant need, but pain management adequate for pt for now Discussed with Dr Cathi Winston (2) DVT prophylaxis Current Visit: Yes Status: Acute Code(s): Z29.9 - ENCOUNTER FOR PROPHYLACTIC MEASURES, UNSPECIFIED SNOMED Code(s): 610752695 Comment: lovenox (3) Hypocalcemia Current Visit: Yes Status: Acute Code(s): E83.51 - HYPOCALCEMIA SNOMED Code(s): 1568678 Comment: replacing IV, check Mg (4) Hypopituitarism Current Visit: Yes Status: Acute Code(s): E23.0 - HYPOPITUITARISM SNOMED Code(s): 85141180 Comment: cont stress dose steroids day 3/4, levothyroxine (5) Thrombocytopenia Current Visit: Yes Status: Acute Code(s): D69.6 - THROMBOCYTOPENIA, UNSPECIFIED SNOMED Code(s): 678921977 Comment: stable, due to SIRS secondary to pancreatitis. Status and Disposition: inpatient
[2019-08-26] MEDS: LORazepam INJ* 2 MG/ML 1 ML VIAL IV PUSH PRN ×2 (00:01→08:50)
[2019-08-26] MEDS: Levothyroxine TAB* 125 MCG TAB PO SCH (05:12)
[2019-08-26 06:02] LABS: Hematocrit 41 % (42-52); Hemoglobin 13.6 g/dL (14.0-18.0); Mean Corpuscular HGB Conc 33 g/dL (31-36); Mean Corpuscular Hemoglobin 33 pg (27-31); Mean Corpuscular Volume 101 fL (80-94); Mean Platelet Volume 8.4 fL (7.4-10.4); Platelet Count 122 10^3/uL (150-450); Red Blood Count 4.07 10^6 /uL (4.18-5.48); Red Cell Distribution Width 15 % (10-15)
[2019-08-26 06:39] LABS: Albumin 3.4 g/dL (3.2-5.2); CO2 Carbon Dioxide 21 mmol/L (22-32); Calcium 6.6 mg/dL (8.6-10.3); Chloride 111 mmol/L (101-111); Sodium 140 mmol/L (135-145)
[2019-08-26 06:45] LABS: ALT 36 U/L (7-52); Albumin/Globulin Ratio 1.5 (1-3); Alkaline Phosphatase 54 U/L (34-104); BUN/Creatinine Ratio 17.6 (8-20); Blood Urea Nitrogen 15 mg/dL (6-24); EGFR African American 114.5 (>60); EGFR Non-African American 94.7 (>60); Globulin 2.3 g/dL (2-4); Glucose 157 mg/dL (70-100); Total Protein 5.7 g/dL (6.4-8.9)
[2019-08-26 06:50] LABS: Anion Gap 8 mmol/L (2-11)
[2019-08-26] MEDS: Dexamethasone TAB* 4 MG PO SCH (07:37)
[2019-08-26] MEDS: Enoxaparin(*) 40 MG/0.4 ML SYR SUBCUT SCH (07:37)
[2019-08-26] MEDS: Pantoprazole IV* 40 MG IV SCH (07:37)
[2019-08-26] MEDS: cefTRIAXone(*) 1 GM in NS 0.9% 50 ML* 50 ML IVPB SCH (11:08)
[2019-08-26 11:15] VITALS: BP 155/94
--- NOTE | 2019-08-26 12:30 | PN ---
Hospitalist Progress Note Date of Service: 08/26/19 Discharge paperwork prepared separately. Physical Exam: VS: T37.1, HR 70, RR 14, BP 10/74 O2 Sat 95% RA Gen: awake, not in distress HEENT: no thrush, MMM Heart:Regular, no murmur Lungs:Clear to auscultaiton Abd:+BS NTND soft, slight bluish discoloration of BL flanks, no eccymoses Skin: no rash MSK: no joint synovitis
--- NOTE | 2019-08-26 13:32 | DS ---
CC: Dr. Clement DISCHARGE SUMMARY: DATE OF ADMISSION: 08/22/19 DATE OF DISCHARGE: 08/26/19 PRIMARY CARE PROVIDER: None. CONDITION AT DISCHARGE: Functional without assistance. DISPOSITION: To home. PRIMARY DISCHARGE DIAGNOSIS: Acute pancreatitis. SECONDARY DIAGNOSES: 1. Acute kidney injury, resolved. 2. Thrombocytopenia. 3. Hypocalcemia. PROCEDURES: None. PERTINENT IMAGING: CT abdomen and pelvis on 08/22/19 showed acute pancreatitis with small volume of anterior pararenal space, peripancreatic non-loculated fluid. No CT abnormality of the gallbladder or biliary dilatation. There was nonspecific hepatomegaly and hepatosteatosis. MRCP on 08/22/19 showed no cholelithiasis, choledocholithiasis, or biliary dilatation. There was acute pancreatitis. No pancreatic duct dilatation. Mild mural edema of first second and third segments of the duodenum. Ultrasound of gallbladder on 08/22/19 showed normally distended gallbladder without wall thickening or cholelithiasis, no pericholecystic fluid. Common bile duct 0.37 cm diameter. PERTINENT LAB RESULTS: Initial white blood cell count 17.8; creatinine 1.6; lipase 4522, down to 72 today; the creatinine is down to 0.8; platelets are 122 today; white count down to 8. HISTORY OF PRESENT ILLNESS: A 53-year-old man with abdominal pain, nausea, vomiting, found to have acute pancreatitis, complicated by acute kidney injury, thrombocytopenia, and hypocalcemia. HOSPITAL COURSE: He was started on IV hydration. Had some issues with volume overload, requiring supplemental oxygen, which resolved with diuresis. His lipase and symptoms steadily resolved. He was able to restart clear liquids and tolerated them well and is continued to do so today. He has been receiving calcium replacement and his serum calcium was 6.6 today. Lipase was 72. He has a history of elevated triglycerides, which may have been the culprit, though his triglycerides on admission were 665 and felt to be somewhat low, but may have intermittently been elevated and explained to his symptoms. There were no gallstones or biliary source found. Alcohol use was not felt to be significant, though he was counseled to avoid alcohol in the near future. He was felt to have a viral prodrome and has been tested for COVID-19, that test is pending. He has not had respiratory symptoms or fever while here. DISCHARGE MEDICATIONS: 1. Dexamethasone 1 mg by mouth every other day x4 doses and then stop. 2. Levothyroxine 125 mcg by mouth daily. 3. Vitamin B complex one by mouth daily. 4. Testosterone 2 pumps daily. 5. Tums 2 tablets by mouth daily. DISCHARGE INSTRUCTIONS: He will continue progressing with full liquid to a soft , low-fat, low-residue diet, and on to a normal diet as tolerated. He knows to back off of the diet back to clear liquids if symptoms return, and if his symptoms do not resolve, then he will return to the hospital. His activity at baseline as tolerated. PENDING STUDIES: COVID19 PCR is pending, low likelihood of COVID infection, he will isolate at home. He will need to follow up with hypocalcemia, thrombocytopenia, which are related to his underlying diagnosis of pancreatitis. FOLLOWUP: He will need to establish with a primary care physician. 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 He will follow up with Dr. Clement in the next 2 weeks. PROGNOSIS: Excellent. Return to the hospital with fever or return with abdominal symptoms. Those include epigastric pain or generalized abdominal pain. [id number]/CPS #: [id number] MTDD
--- NOTE | 2019-08-26 15:01 | PN ---
Progress Note - Progress Note Date of Service: 08/26/19 Note: GASTROENTEROLOGY PROGRESS NOTE IE/S: - Abdominal pain much improved. Some discomfort w/ drinking hayley brendon yesterday evening. Tolerating clears today without issue. - Shortness of breath improved. Off supplemental O2. O: AF, HR and BP WNL, 98% RA. Gen: Very pleasant. NAD. Pulm: Minimal dyspnea with extended conversation. Abd: Very slight bluish cassie to skin along right lateral flank and micheline- umbilical region. No significant tenderness. Mildly distended. No guarding. Labs WBC 8 Hgb 19 >>> 13.6 Cr 1.59 >>> 0.85 BUN 17 >>> 15 ALT 81 >>> 36 Alk phos 102 >>> 54 Bilirubin 1 Calcium 10.5 >>> 6.6 Lipase 4522 >>> 72 Imaging CXR with b/l pleural effusions MRCP: Acute pancreatitis. Distal segment of CBD involving intrapanc portion not well visualized due to small size or extrinsic compression. No pancreatic ductal dilation. No biliary dilation. No cholelithiasis or choledocholithiasis. Mild mural edema in 1st, 2nd, 3rd segments of duodenum. Small volume ascites. Hepatomegaly. US: Area of visualized CBD not dilated. Hepatic steatosis. CT abd/pelvis: Acute pancreatitis with peripancreatic fluid and small volume ascites. Non-specific hepatomegaly and hepatic steatosis. 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 Unclear etiology of pancreatitis at this point. Hypertriglyceridemia considered , although typically TG level is >1000. Hypercalcemia less likely. Viral etiology considered. There is not much data available for GI manifestations of COVID-19 at this point, although there are anecdotal reports of COVID-19 positive patients presenting with pancreatitis. Given significant respiratory complaints during admission, testing to rule-out COVID-19 was sent. No gallstone , choledocholithiasis or alcohol history noted. IgG4 was not elevated. Clinically much improved. Tolerating clears. Off IV fluids. Dyspnea much improved without ongoing hypoxia. - Can slowly advance as tolerated - Recommend treatment of hypertriglyceridemia in outpatient setting. - Await COVID-19 testing - Follow-up in GI clinic to be offered. Thank you for this consult. Jaylene Clement MD Gastroenterology
== END 2019-08-26 12:49 | disposition home or self-care (01) | DRG 282 ==
LOC: ED 11:38 → MEDTELE 14:27 → MED 08-24 11:21
PROVIDERS: ADMIT Internal Medicine; ATTEND Internal Medicine
DX: K85.90 Acute pancreatitis without necrosis or infection, unspecified (principal); N17.9 Acute kidney failure, unspecified; R65.10 Systemic inflammatory response syndrome (SIRS) of non-infectious origin without acute organ dysfunction; E23.0 Hypopituitarism; D69.6 Thrombocytopenia, unspecified; E83.51 Hypocalcemia; I10 Essential (primary) hypertension; E78.5 Hyperlipidemia, unspecified; R09.02 Hypoxemia; E78.1 Pure hyperglyceridemia; Z79.890 Hormone replacement therapy; Z79.899 Other long term (current) drug therapy; Z83.79 Family history of other diseases of the digestive system; Z88.0 Allergy status to penicillin
CPT/HCPCS: 36415; 71046; 74177; 74181; 76376; 76705; 80048; 80053; 80061; 82330; 82787; 83690; 83735; 84478; 85025; 85027; 87635; 93005; 99284; G2023; J0610; J0696; J1100; J1170; J1650; J1940; J2060; J2270; J2405; J3475; J3490; J8540; Q9967